=== PATIENT | female | born 1995 | race African-American/Black ===

== ENCOUNTER 2022-01-16 19:29 | Emergency (ER) | payer OTHER ==
[2022-01-16] MEDS ORDERED: metroNIDAZOLE 250 MG TAB ONE (19:54)
[2022-01-16] MEDS ORDERED: Doxycycline 100 MG CAP ONE (19:54)
[2022-01-16] MEDS ORDERED: Lidocaine 2% Jelly 5 ML TUBE ONE (19:54)
[2022-01-16 20:13] LABS: Bilirubin Negative (Negative); Blood, Urine Negative (Negative); Clarity Cloudy (Clear); Glucose, Urine (Dipstick) Negative (Negative); Ketone, Urine Negative (Negative); Leukocyte Moderate (Negative); Nitrite Negative (Negative); Protein, Urine (Dipstick) Negative (Neg-Trace); Specific Gravity, Urine 1.025 (1.005-1.030); Urobilinogen 0.2 mg/dL (Less than 2)
[2022-01-16 20:16] LABS: RBC/HPF 0-3 HPF (0-3)
[2022-01-16 20:17] LABS: Bacteria/HPF 3+ HPF (None Seen)
[2022-01-16 20:18] LABS: Pregnancy Test - Urine (BHCG) Negative (Negative); Pregu Control Background? CLEAR/WHITE (CLR/WHITE); Pregu Control Bar Appear? YES (CONTROL BAR); Specific Gravity 1.025 (1.002-1.036)
[2022-01-16] MEDS ORDERED: Ketorolac Tromethamine 30 MG/ML VIAL ONE (20:26)
== END 2022-01-16 20:40 | disposition home or self-care (01) ==
LOC: BURERS 19:29
DX: L73.9 Follicular disorder, unspecified (principal)
CPT/HCPCS: 81003; 81015; 81025; 96372; 99283; J1885